=== PATIENT | female | born 1940 | race Caucasian/White ===

== ENCOUNTER 2020-10-22 16:15 | Emergency (ER) | payer MEDICARE, SELFPAY ==
--- NOTE | ~2020-10-22 | CT_ITS ---
EXAM: CT scan of the head and cervical spine. INDICATION: Reason for Exam fall TECHNIQUE: A noncontrast CT scan was performed from the skull base to the vertex. A noncontrast CT scan of the cervical spine was performed from the base of the skull through T1 at 2.5 mm and 1.25 mm collimation. Coronal and sagittal reformats were obtained at the acquisition workstation. This CT examination was performed using dose optimization techniques as appropriate, variously including the following: *Automated exposure control *Adjustment of mA and/or kV according to patient size (this includes techniques or standardized protocols for targeted exams where dose is matched to indication/reason for exam; i.e. extremities or head) *Use of iterative reconstruction technique DLP: 312 and 727 mGy-cm COMPARISON: None FINDINGS: Head: There is no evidence of acute intracranial hemorrhage or territorial infarction. Richard-white matter differentiation is preserved. No abnormal mass effect or midline shift. No extra-axial fluid collections. No abnormal attenuation is demonstrated within the brain parenchyma. Scattered periventricular and deep white matter hypodensities consistent with microangiopathy. The ventricles and sulcal spaces are proportional without hydrocephalus. Proportional prominence of the ventricles and sulcal spaces. No acute osseous or soft tissue abnormalities. The mastoid air cells and visualized portions of the paranasal sinuses are well aerated. Cervical Spine: Severe disc space narrowing throughout. There is approximately 4 mm of anterolisthesis at C2-C3 appears degenerative. No fracture. No soft tissue swelling. Posterior elements intact. The thyroid gland and remaining cervical soft tissues are normal in appearance. The lung apices demonstrate no abnormalities. CT/CT cervical spine wo con IMPRESSION: No acute intracranial pathology. 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
[2020-10-22 16:27] VITALS: BP 132/90; PULSE 15; PULSE 80; RESP 20; TEMP 36.6; O2SAT 96; O2SAT 97; BMI 27.1
--- NOTE | 2020-10-22 16:28 | ED.FALL ---
HPI - Fall General Chief Complaint: Fall Stated Complaint: mechanical fall Time Seen by Provider: 10/22/20 16:27 Source: patient and EMS Mode of arrival: EMS Limitations: no limitations History of Present Illness MD complaint: fall Onset (ago): minute(s) Fall from: standing Fall witnessed: yes, by family Place fall occurred: home Loss of consciousness: none Prolonged down time: no Symptoms prior to fall: none Context: tripped/slipped Location of injury: head Severity: mild Quality: dull Associated symptoms (after fall): denies Related Data Allergies Allergy/AdvReac Type Severity Reaction Status Date / Time No Known Allergies Allergy Verified 10/22/20 16:27 Review of Systems Review of Systems: Constitutional : No Fever, No Chills ENT/Mouth : No Ear Pain, No Hoarseness, No sore throat Eyes: No Eye Pain, No Swelling, No Redness, No Foreign Body Cardiovascular : No Chest Pain, No SOB Respiratory : No Cough, No Dyspnea Gastrointestinal : No Nausea, No Vomiting, No Diarrhea, No abdominal Pain Genitourinary : No Dysuria, No Hematuria Musculoskeletal : no joint pain, No Myalgias, No Joint Swelling Skin : pos Skin lacerations, No rash Neuro : No Weakness, No Numbness, No Loss of Consciousness, No Dizziness, No Headache Psych : No Anxiety/Panic, No Depression Heme/Lymph: no easy bruising, no Lymphadenopathy Endocrine : No Polyuria, No Polydipsia All other systems reviewed and are negative [facility] Past Medical History Attestation statement: The following information was validated with the patient. Medical History (Updated 10/22/20 @ 17:13 by Lucy Banks DO) Arthritis Factor 5 Leiden mutation, heterozygous Surgical History (Updated 10/22/20 @ 16:32 by Liz Holm) H/O: hysterectomy Social History Social History (Updated 10/22/20 @ 16:32 by Lucy Banks DO) Alcohol intake: unknown Patient Tobacco Use Status: Never used Tobacco Use of substances other than those prescribed or required for medical reasons: No Advance Directives: No Advance Directives Information Provided: No Physical Exam Vital Signs: Vital Signs: Last Vital Signs Temp 98 F 10/22/20 16:27 Pulse 15 L 10/22/20 16:27 Resp 20 10/22/20 16:27 Pulse Ox 97 10/22/20 16:27 Body Mass Index 27.1 Appearance: Alert. Oriented X3. No acute distress. Eyes: Pupils equal, round and reactive to light. ENT: Pharynx normal. scalp L posterior dried blood 1.5cm superficial laceration Neck: Normal inspection. Neck supple. no midline ttp - collar removed CVS: Normal heart rate and rhythm. Pulses normal. Respiratory: No respiratory distress. Breath sounds normal. Abdomen: Soft and nontender. Skin: Skin warm and dry. Normal skin color. Normal skin turgor. Extremities: No lower extremity edema. No calf ttp Neuro: Oriented X 3. No motor deficit. No sensory deficit. Course Course Course Narrative: GCS 15 stable for DC Procedures Laceration Laceration 1: Site: scalp Side (If applicable): left Size (cm): 1.5 Description: linear Depth: simple, single layer Local Anesthetic: other anesthetic (LET 3mL) Pre-repair: wound explored and irrigated extensively Skin layer closed with: other (2 benja) MDM - Fall MDM Narrative Medical decision making narrative: 80 yo female on coumadin mechanical fall has laceration to scalp no LOC, she tripped - at this will need CT head/neck for trauma given age and coumadin use, INR, repair of laceration, no other injuries noted on trunk/extremities. GCS 15. Lab Data Result diagrams: 10/22/20 16:47 10/22/20 16:47 Labs: Lab Results 10/22/20 10/22/20 10/22/20 Range/Units 16:47 16:47 16:47 WBC 6.9 (4.8-10.8) X10*3/uL RBC 4.27 (4.20-5.50) X10*6/uL Hgb 12.5 (12.0-16.0) g/dl Hct 39.0 (37-47) % MCV 91.3 (80-98) fL MCH 29.3 (27.0-33.0) pg MCHC 32.1 (31.0-35.0) g/dl RDW 15.2 (11.0-16.0) % Plt Count 226 (160-400) X10*3/uL MPV 9.7 (9.4-12.3) fL Immature Gran % (Auto) 0.4 (0.0-0.4) % Neut % (Auto) 70.5 (45-73) % Lymph % (Auto) 16.6 L (20-40) % [place] % (Auto) 9.3 (2-11) % Eos % (Auto) 2.8 (0-4) % Baso % (Auto) 0.4 (0-2) % Lymph # (Auto) 1.1 L (1.2-4.9) X10*3/uL [place] # (Auto) 0.6 (0.1-1.2) X10*3/uL Eos # (Auto) 0.2 (0.0-0.4) X10*3/uL Baso # (Auto) 0.0 (0.0-0.2) X10*3/uL Abs Immat Gran (auto) 0.03 (0.00-0.03) X10*3/uL Absolute Neuts (auto) 4.9 (2.0-8.3) X10*3/uL Absolute Nucleated RBC 0.000 (0.0-0.012) X10*3/uL Nucleated RBC % (auto) 0.0 (0.0-0.2) /100WBC PT 36.4 H (9.9-13.0) SEC INR 3.1 H (0.9-1.1) Sodium 139 (135-145) mmol/L Potassium 3.9 (3.3-5.1) mmol/L Chloride 100 (96-108) mmol/L Carbon Dioxide 31 H (22-29) mmol/L Anion Gap 12 (12-20) BUN 26 H (9-16) mg/dL Creatinine 1.41 H (0.5-1.4) mg/dL Estim Creat Clear Calc 33.1 Estimated GFR 36 Random Glucose 142 H (60-115) mg/dL Calcium 9.4 (8.4-10.2) mg/dL Discharge Plan Discharge Clinical Impression: Laceration of scalp, Head injury Patient Disposition: Home, Self-Care Instructions: Laceration (ED), Head Injury (ED) Additional Instructions: INR 3.1, Creatinine 1.4 it is okay to shower with benja, benja come out in 10 days okay to go to urgent care, primary care, or emergency department stay with responsible adult tonight - come back for confusion, severe headaches or any other concerning signs
[2020-10-22 16:52] LABS: MANUAL DIFF FLAG NO
[2020-10-22 16:53] LABS: Basophils Percent Auto 0.4 % (0-2); Eosinophils Absolute Auto 0.2 X10*3/uL (0.0-0.4); Eosinophils Percent Auto 2.8 % (0-4); Hemoglobin 12.5 g/dl (12.0-16.0); Imm Gran Abs Auto 0.03 X10*3/uL (0.00-0.03); Imm Gran Pct Auto 0.4 % (0.0-0.4); Lymphocytes Absolute Auto 1.1 X10*3/uL (1.2-4.9); Lymphocytes Percent Auto 16.6 % (20-40); Mean Corpuscular HGB Conc 32.1 g/dl (31.0-35.0); Mean Corpuscular Hemoglobin 29.3 pg (27.0-33.0); Mean Corpuscular Volume 91.3 fL (80-98); Mean Platelet Volume 9.7 fL (9.4-12.3); Monocytes Absolute Auto 0.6 X10*3/uL (0.1-1.2); Monocytes Percent Auto 9.3 % (2-11); Neutrophils Absolute Auto 4.9 X10*3/uL (2.0-8.3); Neutrophils Percent Auto 70.5 % (45-73); Platelet Count 226 X10*3/uL (160-400); Red Blood Count 4.27 X10*6/uL (4.20-5.50); Red Cell Distribution Width 15.2 % (11.0-16.0); White Blood Count 6.9 X10*3/uL (4.8-10.8)
[2020-10-22 17:02] LABS: INTERNATIONAL NORM RATIO 3.1 (0.9-1.1); Prothrombin Time 36.4 SEC (9.9-13.0)
[2020-10-22 17:10] LABS: Anion Gap 12 (12-20); Blood Urea Nitrogen 26 mg/dL (9-16); Calcium 9.4 mg/dL (8.4-10.2); Carbon Dioxide 31 mmol/L (22-29); Chloride 100 mmol/L (96-108); Creatinine Clr Calc Pharmacy 33.1; Estimated Glomerular Filt Rate 36; Glucose Random 142 mg/dL (60-115); Potassium 3.9 mmol/L (3.3-5.1); Sodium 139 mmol/L (135-145)
[2020-10-22] MEDS: Lidocaine/Epineph/Tetracaine 3 ML GEL.PF.APP TOPICAL (18:16)
== END 2020-10-22 18:22 | disposition home or self-care (01) ==
LOC: HO.ED 17:17
PROVIDERS: Emergency Provider Emergency Medicine; PCP Internal Medicine
DX: S01.01XA Laceration without foreign body of scalp, initial encounter (principal); S09.90XA Unspecified injury of head, initial encounter; W01.0XXA Fall on same level from slipping, tripping and stumbling without subsequent striking against object, initial encounter; Y93.89 Activity, other specified; Y92.019 Unspecified place in single-family (private) house as the place of occurrence of the external cause; Y99.9 Unspecified external cause status; Z79.01 Long term (current) use of anticoagulants
CPT/HCPCS: 12031; 36415; 70450; 72125; 80048; 85025; 85610; 99284

== ENCOUNTER 2022-06-26 08:04 | Outpatient (RCR) | payer MEDICARE, SELFPAY | END 2022-07-22 16:00 | disposition home or self-care (01) | LOC: HO.WCC 08:04 | PROVIDERS: PCP Internal Medicine; Visit Provider Physician Assistant | DX: L97.822 Non-pressure chronic ulcer of other part of left lower leg with fat layer exposed (principal); I87.002 Postthrombotic syndrome without complications of left lower extremity; D68.2 Hereditary deficiency of other clotting factors; R60.0 Localized edema; G30.9 Alzheimer's disease, unspecified; F02.80 Dementia in other diseases classified elsewhere, unspecified severity, without behavioral disturbance, psychotic disturbance, mood disturbance, and anxiety | CPT/HCPCS: 11042; 11045; 99211 ==